=== PATIENT | female | born 1950 | race Two or more races ===

== ENCOUNTER → 2021-11-25 07:43 | Outpatient (CLI) | payer OTHER ==
[~2021-11-25 07:43] MED LIST: AMBIEN10 MG; ECOTRIN325 MG; FIORICET 50-321 EACH PO; LEVSIN/SL0.125 MG PO; LOPRESSOR HCT 51 TAB; OXYC1TAB9 PO; SYNTHROID88 MCG; TOPROL XL100 MG
== END | disposition home or self-care (01) ==
LOC: NUCLEAR 06:00
PROVIDERS: ATTEND Physical Medicine & Rehabilitation
DX: M25.561 Pain in right knee (principal)

== ENCOUNTER 2021-12-02 12:44 | Outpatient (CLI) | payer OTHER | END 2021-12-02 12:56 | disposition home or self-care (01) | LOC: RAD 12:44 | PROVIDERS: ATTEND Orthopaedic Surgery | DX: Z96.651 Presence of right artificial knee joint (principal); M25.561 Pain in right knee ==

== ENCOUNTER → 2021-12-02 13:21 | Outpatient (CLI) | payer OTHER | END | disposition home or self-care (01) | LOC: LAB 13:21 | PROVIDERS: ATTEND Orthopaedic Surgery | DX: D64.9 Anemia, unspecified (principal); M06.4 Inflammatory polyarthropathy ==